=== PATIENT | male | born 1970 | race Asian ===

== ENCOUNTER 2020-03-11 14:46 | Inpatient (IN) | payer OTHER ==
[~2020-03-11] VITALS: Ht 175.3 cm; Wt 135.2 kg
[2020-03-11] MEDS ORDERED: CEFTRIAXONE 1 G PREMIX 50 ML IV ONE (15:30)
[2020-03-11] MEDS ORDERED: AZITHROMYCIN 500 MG in DEXT 5% WATER 250 ML IV ONE (15:30)
[2020-03-11 16:08] LABS: BASOPHILS % 0.5 % (0.0-2.0); EOSINOPHILS % 1.7 % (0.0-5.0); HEMATOCRIT. 54.8 % (42.0-52.0); HEMOGLOBIN. 16.2 g/dL (14.0-18.0); LYMPHOCYTES % 9.4 % (20.0-50.0); MEAN CORPUSCULAR HEMOGLOBIN 25.7 pg (28.0-32.0); MEAN CORPUSCULAR VOLUME 86.8 fL (80.0-94.0); MEAN PLATELET VOLUME 9.1 fl (7.4-10.4); MONOCYTES % 7.1 % (2.0-8.0); NEUTROPHILS % 81.3 % (40.0-76.0); PLATELET 172 x1000/uL (130-400); RED BLOOD CELL COUNT 6.31 mill/uL (4.7-6.1); RED CELL DISTRIBUTION WIDTH 17.2 % (11.6-14.6)
[2020-03-11 16:14] LABS: CHLORIDE 101 mEq/L (98-107)
[2020-03-11 16:16] LABS: D-DIMER 1.06 mg/L FEU (<0.50); INR 1.2; PROTHROMBIN TIME 12.1 sec (9.6-11.0)
[2020-03-11] MEDS ORDERED: NITROGLYCERIN OINT 1GM/INCH UDPKT TD ONE (16:45)
[2020-03-11] MEDS ORDERED: FUROSEMIDE 40MG/4ML VIAL IV ONE (16:45)
[2020-03-11 17:54] LABS: BG BASE EXCESS 4.1 mmol/L (-2.0-2.0); BG DEOXYHEMOGLOBIN 1.4 % (0.0-5.0); BG FRACTION INSPIRED OXYGEN 100; BG HCO3 ACT 37.6 mmol/L (22.0-26.0); BG METHEMOGLOBIN 0.4 % (0.0-1.5); BG OXYGEN SATURATION 98.6 % (92.0-98.5); BG OXYHEMOGLOBIN 97.2 % (94.0-97.0); BG PCO2 104.3 mmHg (35.0-45.0); BG PH 7.175 (7.350-7.450); BG SAMPLE SITE RIGHT RADIAL; BG TOTAL HEMOGLOBIN 17.7 g/dL (12.0-18.0); BG VENT MODE MASK - NRB
[2020-03-11 20:11] LABS: BG CARBOXYHEMOGLOBIN 1.4 % (0.5-1.5); BG DEOXYHEMOGLOBIN 0.8 % (0.0-5.0); BG FRACTION INSPIRED OXYGEN 70; BG HCO3 ACT 42.7 mmol/L (22.0-26.0); BG METHEMOGLOBIN 0.6 % (0.0-1.5); BG OXYGEN SATURATION 99.2 % (92.0-98.5); BG OXYHEMOGLOBIN 97.2 % (94.0-97.0); BG PCO2 129.3 mmHg (35.0-45.0); BG PH 7.137 (7.350-7.450); BG PO2 192.7 mmHg (75.0-100.0); BG TOTAL HEMOGLOBIN 17.6 g/dL (12.0-18.0)
[2020-03-11 21:29] LABS: BG BASE EXCESS 5.2 mmol/L (-2.0-2.0); BG CARBOXYHEMOGLOBIN 1.4 % (0.5-1.5); BG DEOXYHEMOGLOBIN 0.6 % (0.0-5.0); BG FRACTION INSPIRED OXYGEN 100; BG HCO3 ACT 39.7 mmol/L (22.0-26.0); BG METHEMOGLOBIN 0.6 % (0.0-1.5); BG OXYGEN SATURATION 99.4 % (92.0-98.5); BG OXYHEMOGLOBIN 97.4 % (94.0-97.0); BG PCO2 115.5 mmHg (35.0-45.0); BG PH 7.154 (7.350-7.450); BG PO2 222.4 mmHg (75.0-100.0); BG TOTAL HEMOGLOBIN 17.3 g/dL (12.0-18.0)
[2020-03-11] MEDS ORDERED: VECURONIUM BROMIDE 10 MG/VIAL IV ONE (21:45)
[2020-03-11] MEDS ORDERED: ETOMIDATE 2MG/ML 10ML VIAL IV ONE (21:45)
[2020-03-11] MEDS ORDERED: IOHEXOL-350 100 ML BOTTLE ONE (22:44)
[2020-03-11] MEDS ORDERED: PROPOFOL 10MG/ML 100ML 100 ML IV STA (22:47)
[2020-03-12] MEDS ORDERED: SODIUM CHLORIDE 0.9% 10ML VIAL ONE
[2020-03-12] MEDS ORDERED: ASPIRIN 300MG SUPP PR ONE (00:15)
[2020-03-12] MEDS ORDERED: MIDAZOLAM HCL 100 MG in DEXT 5% WATER 80 ML IV ONE (00:30)
[2020-03-12 00:32] LABS: BG BASE EXCESS 6.4 mmol/L (-2.0-2.0); BG CARBOXYHEMOGLOBIN 1.4 % (0.5-1.5); BG DEOXYHEMOGLOBIN 6.3 % (0.0-5.0); BG FRACTION INSPIRED OXYGEN 100; BG HCO3 ACT 39.1 mmol/L (22.0-26.0); BG METHEMOGLOBIN 0.4 % (0.0-1.5); BG OXYGEN SATURATION 93.6 % (92.0-98.5); BG OXYHEMOGLOBIN 91.9 % (94.0-97.0); BG PCO2 99.4 mmHg (35.0-45.0); BG PH 7.213 (7.350-7.450); BG PO2 73.9 mmHg (75.0-100.0); BG SAMPLE SITE RIGHT BRACHIAL
[2020-03-12] MEDS ORDERED: MIDAZOLAM HCL 100 MG in DEXT 5% WATER 80 ML IV SCH (01:00)
[2020-03-12] MEDS ORDERED: DEXAMETHASONE 4MG/ML 1ML VIAL IV SCH (09:00)
[2020-03-12 09:47] LABS: BG BASE EXCESS 12.1 mmol/L (-2.0-2.0); BG CARBOXYHEMOGLOBIN 1.2 % (0.5-1.5); BG DEOXYHEMOGLOBIN 2.7 % (0.0-5.0); BG HCO3 ACT 41.1 mmol/L (22.0-26.0); BG METHEMOGLOBIN 0.1 % (0.0-1.5); BG OXYGEN SATURATION 97.3 % (92.0-98.5); BG PCO2 70.7 mmHg (35.0-45.0); BG PH 7.382 (7.350-7.450); BG PO2 90.1 mmHg (75.0-100.0); BG SAMPLE SITE RIGHT RADIAL; BG TOTAL HEMOGLOBIN 16.4 g/dL (12.0-18.0); BG TOTAL RESPIRATORY RATE 18 b/min; BG VENT MODE VENT - AC
[2020-03-12] MEDS: PIPERACILLIN/TAZ 3.375G PREMIX 50 ML IV SCH ×3 (09:47→18:13)
[2020-03-12] MEDS: ENOXAPARIN 40MG/0.4ML SYR SUBCUT SCH (09:49)
[2020-03-12] MEDS: PANTOPRAZOLE SODIUM 40 MG/VIAL IV SCH (10:00)
[2020-03-12] MEDS ORDERED: ONDANSETRON HCL 4MG/2ML INJ IV PRN (10:00)
[2020-03-12] MEDS ORDERED: FUROSEMIDE 40MG/4ML VIAL IVP NR (10:15)
[2020-03-12] MEDS: IPRATROPIUM/ALBUTEROL 0.5-3(2.5)MG/3ML NEB HHN SCH ×4 (10:30→21:41)
[2020-03-12 11:17] LABS: CLARITY URINE CLEAR (CLEAR); COLOR URINE YELLOW (YELLOW); KETONES URINE NEGATIVE (NEGATIVE); LEUKOCYTE ESTERASE URINE NEGATIVE (NEGATIVE); NITRITE URINE NEGATIVE (NEGATIVE); OCCULT BLOOD URINE 2+ (NEGATIVE); PROTEIN URINE NEGATIVE (NEGATIVE); SPECIFIC GRAVITY URINE 1.018 (1.005-1.030); UROBILINOGEN URINE 0.2 E.U./dL (0.2-1.0)
[2020-03-12 12:57] LABS: HEMATOCRIT. 50.8 % (42.0-52.0); HEMOGLOBIN. 15.8 g/dL (14.0-18.0); MEAN CORPUSCULAR HEMOGLOBIN 26.6 pg (28.0-32.0); MEAN CORPUSCULAR VOLUME 85.5 fL (80.0-94.0); MEAN PLATELET VOLUME 9.1 fl (7.4-10.4); PLATELET 152 x1000/uL (130-400); RED BLOOD CELL COUNT 5.94 mill/uL (4.7-6.1); RED CELL DISTRIBUTION WIDTH 16.5 % (11.6-14.6)
[2020-03-12 13:09] LABS: CHLORIDE 103 mEq/L (98-107)
[2020-03-12 13:34] LABS: PLATELET ESTIMATE NORMAL
[2020-03-12 16:39] LABS: *AMPHETAMINES SCREEN URINE NEGATIVE (NEGATIVE); *BARBITURATES SCREEN URINE NEGATIVE (NEGATIVE); *BENZODIAZEPINES SCREEN URINE PRESUMTIVE POSITIVE (NEGATIVE); *COCAINE SCREEN URINE NEGATIVE (NEGATIVE); METHADONE URINE SCREEN NEGATIVE (NEGATIVE); OPIATES URINE SCREEN NEGATIVE (NEGATIVE)
[2020-03-12 16:40] LABS: CANNABINOID URINE SCREEN NEGATIVE (NEGATIVE); PHENCYCLIDINE URINE SCREEN NEGATIVE (NEGATIVE)
[2020-03-13] MEDS: IPRATROPIUM/ALBUTEROL 0.5-3(2.5)MG/3ML NEB HHN SCH ×6 (00:27→20:38)
[2020-03-13] MEDS: PIPERACILLIN/TAZ 3.375G PREMIX 50 ML IV SCH ×4 (05:30→18:28)
[2020-03-13] MEDS: ENOXAPARIN 40MG/0.4ML SYR SUBCUT SCH ×3 (05:30→22:28)
[2020-03-13] MEDS: METHYLPREDNISOLONE SOD SUCC 40 MG/ML VIAL IV SCH ×3 (05:30→14:16)
[2020-03-13 10:05] LABS: BG BASE EXCESS 8.1 mmol/L (-2.0-2.0); BG CARBOXYHEMOGLOBIN 0.9 % (0.5-1.5); BG DEOXYHEMOGLOBIN 10.4 % (0.0-5.0); BG FRACTION INSPIRED OXYGEN 60; BG HCO3 ACT 31.7 mmol/L (22.0-26.0); BG METHEMOGLOBIN 0.5 % (0.0-1.5); BG OXYGEN SATURATION 89.5 % (92.0-98.5); BG OXYHEMOGLOBIN 88.2 % (94.0-97.0); BG PCO2 39.8 mmHg (35.0-45.0); BG PH 7.519 (7.350-7.450); BG PO2 49.9 mmHg (75.0-100.0); BG SAMPLE SITE RIGHT RADIAL; BG TOTAL HEMOGLOBIN 17.8 g/dL (12.0-18.0); BG VENT MODE VENT - AC
[2020-03-13] MEDS: PANTOPRAZOLE SODIUM 40 MG/VIAL IV SCH (10:26)
[2020-03-13] MEDS: FUROSEMIDE 40MG/4ML VIAL IVP SCH (10:27)
[2020-03-13 13:10] LABS: HEMATOCRIT. 52.7 % (42.0-52.0); HEMOGLOBIN. 16.5 g/dL (14.0-18.0); MEAN CORPUSCULAR HEMOGLOBIN 26.2 pg (28.0-32.0); MEAN CORPUSCULAR VOLUME 83.7 fL (80.0-94.0); MEAN PLATELET VOLUME 9.4 fl (7.4-10.4); PLATELET 177 x1000/uL (130-400); RED CELL DISTRIBUTION WIDTH 16.3 % (11.6-14.6)
[2020-03-13 13:12] LABS: CHLORIDE 100 mEq/L (98-107)
[2020-03-13 14:40] LABS: PLATELET ESTIMATE NORMAL
[2020-03-13 17:25] LABS: BG BASE EXCESS 7.1 mmol/L (-2.0-2.0); BG CARBOXYHEMOGLOBIN 0.5 % (0.5-1.5); BG DEOXYHEMOGLOBIN 5.1 % (0.0-5.0); BG FRACTION INSPIRED OXYGEN 90; BG HCO3 ACT 34.7 mmol/L (22.0-26.0); BG METHEMOGLOBIN 0.5 % (0.0-1.5); BG OXYGEN SATURATION 94.8 % (92.0-98.5); BG OXYHEMOGLOBIN 93.9 % (94.0-97.0); BG PCO2 58.6 mmHg (35.0-45.0); BG PO2 78.5 mmHg (75.0-100.0); BG SAMPLE SITE RIGHT RADIAL; BG TOTAL HEMOGLOBIN 18.3 g/dL (12.0-18.0); BG VENT MODE VENT - AC
[2020-03-14] MEDS: IPRATROPIUM/ALBUTEROL 0.5-3(2.5)MG/3ML NEB HHN SCH ×6 (00:21→21:08)
[2020-03-14] MEDS: ACETYLCYSTEINE 100MG/ML 10% VIAL 4ML INH SCH ×6 (00:38→16:00)
[2020-03-14] MEDS: METHYLPREDNISOLONE SOD SUCC 40 MG/ML VIAL IV SCH ×4 (00:39→23:30)
[2020-03-14] MEDS: PIPERACILLIN/TAZ 3.375G PREMIX 50 ML IV SCH ×4 (00:39→21:49)
[2020-03-14 06:38] LABS: CHLORIDE 102 mEq/L (98-107)
[2020-03-14 06:43] LABS: HEMATOCRIT. 54.5 % (42.0-52.0); MEAN CORPUSCULAR HEMOGLOBIN 26.2 pg (28.0-32.0); MEAN CORPUSCULAR VOLUME 84.2 fL (80.0-94.0); MEAN PLATELET VOLUME 9.5 fl (7.4-10.4); PLATELET 184 x1000/uL (130-400); RED BLOOD CELL COUNT 6.47 mill/uL (4.7-6.1); RED CELL DISTRIBUTION WIDTH 17.2 % (11.6-14.6)
[2020-03-14] MEDS: FUROSEMIDE 40MG/4ML VIAL IVP SCH (09:43)
[2020-03-14] MEDS: PANTOPRAZOLE SODIUM 40 MG/VIAL IV SCH (09:43)
[2020-03-14] MEDS: ENOXAPARIN 40MG/0.4ML SYR SUBCUT SCH ×2 (09:45→21:50)
[2020-03-14 10:17] LABS: BG CARBOXYHEMOGLOBIN 1.1 % (0.5-1.5); BG DEOXYHEMOGLOBIN 4.3 % (0.0-5.0); BG FRACTION INSPIRED OXYGEN 100; BG HCO3 ACT 33.5 mmol/L (22.0-26.0); BG METHEMOGLOBIN 0.5 % (0.0-1.5); BG OXYGEN SATURATION 95.6 % (92.0-98.5); BG OXYHEMOGLOBIN 94.1 % (94.0-97.0); BG PCO2 52.8 mmHg (35.0-45.0); BG PO2 80.1 mmHg (75.0-100.0); BG SAMPLE SITE RIGHT RADIAL; BG VENT MODE VENT - AC
[2020-03-14 10:48] LABS: PLATELET ESTIMATE NORMAL
[2020-03-14] MEDS ORDERED: LORAZEPAM 2MG/ML CPJ IV PRN (17:00)
[2020-03-14] MEDS: LEVETIRACETAM 500MG TABLET PO SCH (22:28)
[2020-03-15] VITALS (42 sets, daily range): BP systolic 76–125; BP diastolic 35–96
[2020-03-15] MEDS: IPRATROPIUM/ALBUTEROL 0.5-3(2.5)MG/3ML NEB HHN SCH ×6 (00:35→21:34)
[2020-03-15] MEDS: ACETYLCYSTEINE 100MG/ML 10% VIAL 4ML INH SCH ×3 (00:39→21:34)
[2020-03-15] MEDS: PIPERACILLIN/TAZ 3.375G PREMIX 50 ML IV SCH ×3 (05:52→11:46)
[2020-03-15] MEDS: METHYLPREDNISOLONE SOD SUCC 40 MG/ML VIAL IV SCH ×3 (06:00→21:11)
[2020-03-15 06:18] LABS: HEMATOCRIT. 55.1 % (42.0-52.0); HEMOGLOBIN. 16.9 g/dL (14.0-18.0); MEAN CORPUSCULAR HEMOGLOBIN 25.8 pg (28.0-32.0); MEAN CORPUSCULAR VOLUME 84.4 fL (80.0-94.0); MEAN PLATELET VOLUME 9.3 fl (7.4-10.4); PLATELET 181 x1000/uL (130-400); RED BLOOD CELL COUNT 6.53 mill/uL (4.7-6.1)
[2020-03-15 06:24] LABS: CHLORIDE 103 mEq/L (98-107)
[2020-03-15 07:54] LABS: PLATELET ESTIMATE NORMAL
[2020-03-15 08:06] LABS: BG BASE EXCESS 4.4 mmol/L (-2.0-2.0); BG CARBOXYHEMOGLOBIN 0.6 % (0.5-1.5); BG DEOXYHEMOGLOBIN 6.9 % (0.0-5.0); BG FRACTION INSPIRED OXYGEN 100; BG HCO3 ACT 30.8 mmol/L (22.0-26.0); BG METHEMOGLOBIN 0.3 % (0.0-1.5); BG OXYHEMOGLOBIN 92.2 % (94.0-97.0); BG PCO2 51.6 mmHg (35.0-45.0); BG PH 7.394 (7.350-7.450); BG PO2 69.7 mmHg (75.0-100.0); BG SAMPLE SITE RIGHT RADIAL; BG TOTAL RESPIRATORY RATE 23 b/min; BG VENT MODE VENT - AC
[2020-03-15] MEDS: FENTANYL CITRATE/PF 2,500 MCG in SODIUM CHLORIDE 0.9% 200 ML IV PRN ×2 (09:19→17:11)
[2020-03-15] MEDS: ENOXAPARIN 40MG/0.4ML SYR SUBCUT SCH ×2 (09:49→21:11)
[2020-03-15] MEDS: FUROSEMIDE 40MG/4ML VIAL IVP SCH (09:50)
[2020-03-15] MEDS: LEVETIRACETAM 500MG TABLET PO SCH ×2 (09:50→21:11)
[2020-03-15] MEDS: PANTOPRAZOLE SODIUM 40 MG/VIAL IV SCH (10:57)
[2020-03-15 13:10] LABS: BG BASE EXCESS 6.5 mmol/L (-2.0-2.0); BG CARBOXYHEMOGLOBIN 0.3 % (0.5-1.5); BG FRACTION INSPIRED OXYGEN 100; BG HCO3 ACT 32.8 mmol/L (22.0-26.0); BG METHEMOGLOBIN 0.2 % (0.0-1.5); BG OXYHEMOGLOBIN 93.5 % (94.0-97.0); BG PCO2 51.4 mmHg (35.0-45.0); BG PH 7.423 (7.350-7.450); BG PO2 69.9 mmHg (75.0-100.0); BG SAMPLE SITE RIGHT BRACHIAL; BG TOTAL HEMOGLOBIN 18.3 g/dL (12.0-18.0); BG TOTAL RESPIRATORY RATE 22 b/min; BG VENT MODE VENT - AC
[2020-03-15] MEDS: MIDAZOLAM HCL 100 MG in DEXT 5% WATER 80 ML IV PRN ×2 (13:25→21:47)
[2020-03-15] MEDS: PIPERACILLIN/TAZOBACTAM 3.375 G in DEXT 5% WATER 100 ML IV SCH (18:35)
[2020-03-15] MEDS: RISPERIDONE 1MG TABLET PO SCH (21:11)
[2020-03-15] MEDS: ACETAMINOPHEN 325MG TABLET PO PRN (21:18)
[2020-03-16] VITALS (63 sets, daily range): BP systolic 90–120; BP diastolic 50–77
[2020-03-16] MEDS: PIPERACILLIN/TAZOBACTAM 3.375 G in DEXT 5% WATER 100 ML IV SCH ×5 (00:15→23:30)
[2020-03-16] MEDS: FENTANYL CITRATE/PF 2,500 MCG in SODIUM CHLORIDE 0.9% 200 ML IV PRN ×3 (00:21→18:14)
[2020-03-16] MEDS: IPRATROPIUM/ALBUTEROL 0.5-3(2.5)MG/3ML NEB HHN SCH ×6 (01:41→20:00)
[2020-03-16] MEDS: ACETYLCYSTEINE 100MG/ML 10% VIAL 4ML INH SCH ×5 (01:41→20:01)
[2020-03-16 06:15] LABS: HEMATOCRIT. 52.3 % (42.0-52.0); HEMOGLOBIN. 16.2 g/dL (14.0-18.0); MEAN CORPUSCULAR HEMOGLOBIN 25.9 pg (28.0-32.0); MEAN CORPUSCULAR VOLUME 83.3 fL (80.0-94.0); MEAN PLATELET VOLUME 9.5 fl (7.4-10.4); PLATELET 187 x1000/uL (130-400); RED BLOOD CELL COUNT 6.27 mill/uL (4.7-6.1); RED CELL DISTRIBUTION WIDTH 16.6 % (11.6-14.6)
[2020-03-16] MEDS: METHYLPREDNISOLONE SOD SUCC 40 MG/ML VIAL IV SCH ×3 (06:27→21:26)
[2020-03-16 06:31] LABS: CHLORIDE 102 mEq/L (98-107)
[2020-03-16] MEDS: ENOXAPARIN 40MG/0.4ML SYR SUBCUT SCH ×2 (08:01→21:26)
[2020-03-16] MEDS: MIDAZOLAM HCL 100 MG in DEXT 5% WATER 80 ML IV PRN ×2 (08:01→23:33)
[2020-03-16] MEDS: LEVETIRACETAM 500MG TABLET PO SCH ×2 (08:02→21:26)
[2020-03-16] MEDS: RISPERIDONE 1MG TABLET PO SCH ×2 (08:02→21:26)
[2020-03-16] MEDS: PANTOPRAZOLE SODIUM 40 MG/VIAL IV SCH (08:02)
[2020-03-16] MEDS: FUROSEMIDE 40MG/4ML VIAL IVP SCH (08:02)
[2020-03-16 08:18] LABS: BG BASE EXCESS 5.5 mmol/L (-2.0-2.0); BG CARBOXYHEMOGLOBIN 0.3 % (0.5-1.5); BG DEOXYHEMOGLOBIN 2.6 % (0.0-5.0); BG FRACTION INSPIRED OXYGEN 100; BG HCO3 ACT 29.5 mmol/L (22.0-26.0); BG METHEMOGLOBIN 0.1 % (0.0-1.5); BG OXYGEN SATURATION 97.4 % (92.0-98.5); BG PCO2 40.5 mmHg (35.0-45.0); BG PO2 93.7 mmHg (75.0-100.0); BG SAMPLE SITE RIGHT RADIAL; BG TOTAL RESPIRATORY RATE 22 b/min; BG VENT MODE VENT - AC
[2020-03-16] MEDS: ACETAMINOPHEN 325MG TABLET PO PRN (08:29)
[2020-03-16 17:16] LABS: BG BASE EXCESS 4.5 mmol/L (-2.0-2.0); BG CARBOXYHEMOGLOBIN 0.6 % (0.5-1.5); BG DEOXYHEMOGLOBIN 6.4 % (0.0-5.0); BG HCO3 ACT 27.6 mmol/L (22.0-26.0); BG METHEMOGLOBIN 0.4 % (0.0-1.5); BG OXYGEN SATURATION 93.5 % (92.0-98.5); BG OXYHEMOGLOBIN 92.6 % (94.0-97.0); BG PCO2 36.5 mmHg (35.0-45.0); BG PH 7.497 (7.350-7.450); BG PO2 64.8 mmHg (75.0-100.0); BG SAMPLE SITE RIGHT RADIAL; BG TOTAL HEMOGLOBIN 18.1 g/dL (12.0-18.0); BG VENT MODE VENT - AC
[2020-03-16 19:02] LABS: PLATELET ESTIMATE NORMAL
[2020-03-17] VITALS (53 sets, daily range): BP systolic 96–131; BP diastolic 48–73
[2020-03-17] MEDS: IPRATROPIUM/ALBUTEROL 0.5-3(2.5)MG/3ML NEB HHN SCH ×6 (00:05→21:20)
[2020-03-17] MEDS: ACETYLCYSTEINE 100MG/ML 10% VIAL 4ML INH SCH ×6 (00:05→21:20)
[2020-03-17] MEDS: ACETAMINOPHEN 325MG TABLET PO PRN ×3 (00:10→17:05)
[2020-03-17] MEDS: FENTANYL CITRATE/PF 2,500 MCG in SODIUM CHLORIDE 0.9% 200 ML IV PRN ×2 (04:52→14:22)
[2020-03-17 06:09] LABS: HEMATOCRIT. 53.3 % (42.0-52.0); HEMOGLOBIN. 16.5 g/dL (14.0-18.0); MEAN CORPUSCULAR HEMOGLOBIN 26.2 pg (28.0-32.0); MEAN CORPUSCULAR VOLUME 84.3 fL (80.0-94.0); MEAN PLATELET VOLUME 9.5 fl (7.4-10.4); PLATELET 162 x1000/uL (130-400); RED BLOOD CELL COUNT 6.32 mill/uL (4.7-6.1); RED CELL DISTRIBUTION WIDTH 16.9 % (11.6-14.6)
[2020-03-17 06:11] LABS: CHLORIDE 103 mEq/L (98-107)
[2020-03-17] MEDS: METHYLPREDNISOLONE SOD SUCC 40 MG/ML VIAL IV SCH ×4 (06:13→22:31)
[2020-03-17] MEDS: PIPERACILLIN/TAZOBACTAM 3.375 G in DEXT 5% WATER 100 ML IV SCH ×2 (06:13→11:00)
[2020-03-17 07:08] LABS: BG BASE EXCESS 2.2 mmol/L (-2.0-2.0); BG CARBOXYHEMOGLOBIN 0.9 % (0.5-1.5); BG DEOXYHEMOGLOBIN 7.2 % (0.0-5.0); BG FRACTION INSPIRED OXYGEN 90; BG HCO3 ACT 28.4 mmol/L (22.0-26.0); BG METHEMOGLOBIN 0.4 % (0.0-1.5); BG OXYGEN SATURATION 92.7 % (92.0-98.5); BG OXYHEMOGLOBIN 91.5 % (94.0-97.0); BG PCO2 49.3 mmHg (35.0-45.0); BG PH 7.378 (7.350-7.450); BG PO2 68.3 mmHg (75.0-100.0); BG SAMPLE SITE RIGHT RADIAL; BG TOTAL HEMOGLOBIN 17.6 g/dL (12.0-18.0); BG TOTAL RESPIRATORY RATE 22 b/min; BG VENT MODE VENT - AC
[2020-03-17] MEDS: RISPERIDONE 1MG TABLET PO SCH ×2 (09:24→22:30)
[2020-03-17] MEDS: LEVETIRACETAM 500MG TABLET PO SCH ×2 (09:24→22:30)
[2020-03-17] MEDS: ENOXAPARIN 40MG/0.4ML SYR SUBCUT SCH ×2 (09:25→22:29)
[2020-03-17] MEDS: PANTOPRAZOLE SODIUM 40 MG/VIAL IV SCH (09:25)
[2020-03-17] MEDS: FUROSEMIDE 40MG/4ML VIAL IVP SCH (09:25)
[2020-03-17] MEDS: MIDAZOLAM HCL 100 MG in DEXT 5% WATER 80 ML IV PRN (14:19)
[2020-03-17 17:00] LABS: CLARITY URINE CLEAR (CLEAR); COLOR URINE YELLOW (YELLOW); KETONES URINE NEGATIVE (NEGATIVE); LEUKOCYTE ESTERASE URINE TRACE (NEGATIVE); NITRITE URINE NEGATIVE (NEGATIVE); OCCULT BLOOD URINE NEGATIVE (NEGATIVE); PROTEIN URINE NEGATIVE (NEGATIVE); SPECIFIC GRAVITY URINE 1.022 (1.005-1.030); UROBILINOGEN URINE 0.2 E.U./dL (0.2-1.0)
[2020-03-17 17:25] LABS: PLATELET ESTIMATE NORMAL
[2020-03-17] MEDS: MEROPENEM 1,000 MG in SODIUM CHLORIDE 0.9% 100 ML IV SCH (18:02)
[2020-03-17] MEDS: VANCOMYCIN 1250MG in DEXTROSE 5% WATER 250ML IV SCH (20:32)
[2020-03-18] VITALS (75 sets, daily range): BP systolic 73–119; BP diastolic 32–78
[2020-03-18] MEDS: ACETYLCYSTEINE 100MG/ML 10% VIAL 4ML INH SCH ×5 (00:28→21:15)
[2020-03-18] MEDS: IPRATROPIUM/ALBUTEROL 0.5-3(2.5)MG/3ML NEB HHN SCH ×6 (00:28→21:16)
[2020-03-18] MEDS: FENTANYL CITRATE/PF 2,500 MCG in SODIUM CHLORIDE 0.9% 200 ML IV PRN ×3 (00:44→19:39)
[2020-03-18] MEDS: MEROPENEM 1,000 MG in SODIUM CHLORIDE 0.9% 100 ML IV SCH ×3 (03:03→18:46)
[2020-03-18] MEDS: ACETAMINOPHEN 325MG TABLET PO PRN ×2 (03:19→18:24)
[2020-03-18] MEDS: VANCOMYCIN 1250MG in DEXTROSE 5% WATER 250ML IV SCH ×3 (03:21→21:12)
[2020-03-18] MEDS: MIDAZOLAM HCL 100 MG in DEXT 5% WATER 80 ML IV PRN ×2 (05:42→14:45)
[2020-03-18 06:46] LABS: HEMATOCRIT. 53.4 % (42.0-52.0); HEMOGLOBIN. 16.3 g/dL (14.0-18.0); MEAN CORPUSCULAR VOLUME 85.1 fL (80.0-94.0); MEAN PLATELET VOLUME 10.2 fl (7.4-10.4); PLATELET 146 x1000/uL (130-400); RED BLOOD CELL COUNT 6.27 mill/uL (4.7-6.1)
[2020-03-18 06:47] LABS: CHLORIDE 105 mEq/L (98-107)
[2020-03-18] MEDS: METHYLPREDNISOLONE SOD SUCC 40 MG/ML VIAL IV SCH ×3 (07:10→21:12)
[2020-03-18] MEDS: PANTOPRAZOLE SODIUM 40 MG/VIAL IV SCH (10:07)
[2020-03-18] MEDS: RISPERIDONE 1MG TABLET PO SCH ×2 (10:07→21:12)
[2020-03-18] MEDS: FUROSEMIDE 40MG/4ML VIAL IVP SCH (10:07)
[2020-03-18] MEDS: ENOXAPARIN 40MG/0.4ML SYR SUBCUT SCH ×2 (10:08→21:12)
[2020-03-18] MEDS: LEVETIRACETAM 500MG TABLET PO SCH ×2 (10:12→21:12)
[2020-03-18 10:40] LABS: BG BASE EXCESS 2.4 mmol/L (-2.0-2.0); BG CARBOXYHEMOGLOBIN 0.2 % (0.5-1.5); BG DEOXYHEMOGLOBIN 6.5 % (0.0-5.0); BG FRACTION INSPIRED OXYGEN 100; BG HCO3 ACT 27.1 mmol/L (22.0-26.0); BG METHEMOGLOBIN 0.6 % (0.0-1.5); BG OXYGEN SATURATION 93.4 % (92.0-98.5); BG OXYHEMOGLOBIN 92.7 % (94.0-97.0); BG PH 7.427 (7.350-7.450); BG PO2 65.5 mmHg (75.0-100.0); BG SAMPLE SITE RIGHT RADIAL; BG TOTAL HEMOGLOBIN 18.3 g/dL (12.0-18.0); BG VENT MODE VENT - AC
[2020-03-18 20:29] LABS: PLATELET ESTIMATE NORMAL
[2020-03-19] VITALS (53 sets, daily range): BP systolic 91–110; BP diastolic 55–80
[2020-03-19] MEDS: IPRATROPIUM/ALBUTEROL 0.5-3(2.5)MG/3ML NEB HHN SCH ×7 (00:22→23:50)
[2020-03-19] MEDS: ACETAMINOPHEN 325MG TABLET PO PRN ×2 (03:23→23:34)
[2020-03-19] MEDS: MEROPENEM 1,000 MG in SODIUM CHLORIDE 0.9% 100 ML IV SCH ×3 (04:30→17:56)
[2020-03-19] MEDS: FENTANYL CITRATE/PF 2,500 MCG in SODIUM CHLORIDE 0.9% 200 ML IV PRN ×3 (05:06→21:59)
[2020-03-19] MEDS: VANCOMYCIN 1250MG in DEXTROSE 5% WATER 250ML IV SCH (05:17)
[2020-03-19] MEDS: MIDAZOLAM HCL 100 MG in DEXT 5% WATER 80 ML IV PRN ×2 (05:22→18:35)
[2020-03-19 05:40] LABS: CHLORIDE 106 mEq/L (98-107)
[2020-03-19] MEDS: METHYLPREDNISOLONE SOD SUCC 40 MG/ML VIAL IV SCH ×3 (05:46→21:17)
[2020-03-19 05:48] LABS: CREATINE KINASE 99 IU/L (39-308); VANCOMYCIN TROUGH 12.4 ug/mL (5.0-10.0)
[2020-03-19 06:15] LABS: HEMATOCRIT. 57.1 % (42.0-52.0); HEMOGLOBIN. 17.6 g/dL (14.0-18.0); MEAN CORPUSCULAR HEMOGLOBIN 26.6 pg (28.0-32.0); MEAN PLATELET VOLUME 10.4 fl (7.4-10.4); PLATELET 124 x1000/uL (130-400); RED BLOOD CELL COUNT 6.63 mill/uL (4.7-6.1); RED CELL DISTRIBUTION WIDTH 16.3 % (11.6-14.6)
[2020-03-19] MEDS ORDERED: LIDOCAINE HCL 1% 20ML VIAL (Pyxis) INJ ONE (08:48)
[2020-03-19] MEDS: LEVETIRACETAM 500MG TABLET PO SCH ×2 (08:50→21:17)
[2020-03-19] MEDS: RISPERIDONE 1MG TABLET PO SCH ×2 (08:50→21:17)
[2020-03-19] MEDS: FUROSEMIDE 40MG/4ML VIAL IVP SCH (08:50)
[2020-03-19] MEDS: ENOXAPARIN 40MG/0.4ML SYR SUBCUT SCH ×2 (08:50→21:17)
[2020-03-19] MEDS: PANTOPRAZOLE SODIUM 40 MG/VIAL IV SCH (08:54)
[2020-03-19 12:24] LABS: BG BASE EXCESS 4.5 mmol/L (-2.0-2.0); BG CARBOXYHEMOGLOBIN 0.3 % (0.5-1.5); BG DEOXYHEMOGLOBIN 8.6 % (0.0-5.0); BG FRACTION INSPIRED OXYGEN 100; BG HCO3 ACT 28.5 mmol/L (22.0-26.0); BG METHEMOGLOBIN 0.3 % (0.0-1.5); BG OXYGEN SATURATION 91.3 % (92.0-98.5); BG OXYHEMOGLOBIN 90.8 % (94.0-97.0); BG PCO2 40.2 mmHg (35.0-45.0); BG PH 7.469 (7.350-7.450); BG PO2 57.4 mmHg (75.0-100.0); BG SAMPLE SITE RIGHT RADIAL; BG VENT MODE VENT - AC
[2020-03-19] MEDS: VANCOMYCIN 1500MG in DEXTROSE 5% WATER 250ML IV SCH (14:06)
[2020-03-20] VITALS (71 sets, daily range): BP systolic 86–160; BP diastolic 54–112
[2020-03-20] MEDS: VANCOMYCIN 1500MG in DEXTROSE 5% WATER 250ML IV SCH ×4 (00:16→23:18)
[2020-03-20] MEDS: NOREPINEPHRINE 32 MG in DEXT 5% WATER 218 ML IV PRN (01:35)
[2020-03-20] MEDS: MEROPENEM 1,000 MG in SODIUM CHLORIDE 0.9% 100 ML IV SCH ×3 (03:02→17:24)
[2020-03-20] MEDS: IPRATROPIUM/ALBUTEROL 0.5-3(2.5)MG/3ML NEB HHN SCH ×4 (05:22→21:01)
[2020-03-20] MEDS: METHYLPREDNISOLONE SOD SUCC 40 MG/ML VIAL IV SCH ×3 (05:28→21:27)
[2020-03-20] MEDS: MIDAZOLAM HCL 100 MG in DEXT 5% WATER 80 ML IV PRN ×2 (05:35→18:22)
[2020-03-20] MEDS: FENTANYL CITRATE/PF 2,500 MCG in SODIUM CHLORIDE 0.9% 200 ML IV PRN ×2 (06:07→18:21)
[2020-03-20 07:33] LABS: CHLORIDE 107 mEq/L (98-107)
[2020-03-20 07:42] LABS: HEMATOCRIT. 56.3 % (42.0-52.0); HEMOGLOBIN. 17.6 g/dL (14.0-18.0); MEAN CORPUSCULAR HEMOGLOBIN 26.8 pg (28.0-32.0); MEAN CORPUSCULAR VOLUME 85.7 fL (80.0-94.0); RED BLOOD CELL COUNT 6.57 mill/uL (4.7-6.1); RED CELL DISTRIBUTION WIDTH 16.5 % (11.6-14.6)
[2020-03-20] MEDS: PANTOPRAZOLE SODIUM 40 MG/VIAL IV SCH (09:42)
[2020-03-20] MEDS: FUROSEMIDE 40MG/4ML VIAL IVP SCH (09:42)
[2020-03-20] MEDS: LEVETIRACETAM 500MG TABLET PO SCH ×2 (09:42→21:27)
[2020-03-20] MEDS: ENOXAPARIN 40MG/0.4ML SYR SUBCUT SCH ×2 (09:43→21:28)
[2020-03-20] MEDS: RISPERIDONE 1MG TABLET PO SCH ×2 (09:43→21:27)
[2020-03-20 13:09] LABS: PLATELET 116 x1000/uL (130-400)
[2020-03-20 13:12] LABS: PLATELET ESTIMATE SLIGHTLY DECREASED
[2020-03-20 14:08] LABS: BG BASE EXCESS 2.2 mmol/L (-2.0-2.0); BG CARBOXYHEMOGLOBIN 0.3 % (0.5-1.5); BG DEOXYHEMOGLOBIN 8.3 % (0.0-5.0); BG HCO3 ACT 29.6 mmol/L (22.0-26.0); BG METHEMOGLOBIN 0.4 % (0.0-1.5); BG OXYGEN SATURATION 91.6 % (92.0-98.5); BG PCO2 54.9 mmHg (35.0-45.0); BG PO2 67.7 mmHg (75.0-100.0); BG SAMPLE SITE RIGHT BRACHIAL; BG TOTAL HEMOGLOBIN 19.2 g/dL (12.0-18.0); BG VENT MODE VENT - AC
[2020-03-20] MEDS: ACETAMINOPHEN 325MG TABLET PO PRN ×2 (14:13→18:19)
[2020-03-20 15:31] LABS: PLATELET ESTIMATE SLIGHTLY DECREASED
[2020-03-21] VITALS (67 sets, daily range): BP systolic 76–121; BP diastolic 53–73
[2020-03-21] MEDS: IPRATROPIUM/ALBUTEROL 0.5-3(2.5)MG/3ML NEB HHN SCH ×5 (00:52→17:13)
[2020-03-21] MEDS: MEROPENEM 1,000 MG in SODIUM CHLORIDE 0.9% 100 ML IV SCH ×3 (01:43→17:56)
[2020-03-21] MEDS: ACETAMINOPHEN 325MG TABLET PO PRN ×3 (01:46→22:44)
[2020-03-21] MEDS: FENTANYL CITRATE/PF 2,500 MCG in SODIUM CHLORIDE 0.9% 200 ML IV PRN ×2 (02:12→10:28)
[2020-03-21 04:53] LABS: HEMATOCRIT. 56.5 % (42.0-52.0); HEMOGLOBIN. 17.3 g/dL (14.0-18.0); MEAN CORPUSCULAR HEMOGLOBIN 26.2 pg (28.0-32.0); MEAN CORPUSCULAR VOLUME 85.6 fL (80.0-94.0); PLATELET 122 x1000/uL (130-400); RED CELL DISTRIBUTION WIDTH 16.4 % (11.6-14.6)
[2020-03-21] MEDS: METHYLPREDNISOLONE SOD SUCC 40 MG/ML VIAL IV SCH ×3 (05:00→22:45)
[2020-03-21 05:01] LABS: CHLORIDE 105 mEq/L (98-107)
[2020-03-21] MEDS: MIDAZOLAM HCL 100 MG in DEXT 5% WATER 80 ML IV PRN (10:29)
[2020-03-21] MEDS: ENOXAPARIN 40MG/0.4ML SYR SUBCUT SCH ×2 (10:43→22:45)
[2020-03-21] MEDS: PANTOPRAZOLE SODIUM 40 MG/VIAL IV SCH (10:44)
[2020-03-21] MEDS: RISPERIDONE 1MG TABLET PO SCH ×2 (10:44→22:44)
[2020-03-21] MEDS: FUROSEMIDE 40MG/4ML VIAL IVP SCH (10:44)
[2020-03-21] MEDS: LEVETIRACETAM 500MG TABLET PO SCH ×2 (10:45→22:44)
[2020-03-21] MEDS ORDERED: SODIUM POLYSTYRENE SULFONATE 15 G/60 ML BOT PO SCH (12:00)
[2020-03-21 14:10] LABS: PLATELET ESTIMATE SLIGHTLY DECREASED
[2020-03-21 14:14] LABS: BG CARBOXYHEMOGLOBIN 0.3 % (0.5-1.5); BG DEOXYHEMOGLOBIN 0.6 % (0.0-5.0); BG FRACTION INSPIRED OXYGEN 100; BG HCO3 ACT 32.4 mmol/L (22.0-26.0); BG METHEMOGLOBIN 0.8 % (0.0-1.5); BG OXYGEN SATURATION 99.4 % (92.0-98.5); BG OXYHEMOGLOBIN 98.3 % (94.0-97.0); BG PH 7.343 (7.350-7.450); BG SAMPLE SITE RIGHT RADIAL; BG TOTAL RESPIRATORY RATE 22 b/min; BG VENT MODE VENT - AC
[2020-03-21] MEDS ORDERED: VANCOMYCIN 1500MG in DEXTROSE 5% WATER 250ML IV SCH (22:30)
[2020-03-22] VITALS (54 sets, daily range): BP systolic 60–115; BP diastolic 33–87
[2020-03-22] MEDS: IPRATROPIUM/ALBUTEROL 0.5-3(2.5)MG/3ML NEB HHN SCH ×3 (00:50→08:00)
[2020-03-22] MEDS ORDERED: MIDAZOLAM HCL 100 MG in DEXT 5% WATER 80 ML IV PRN (05:45)
[2020-03-22 06:26] LABS: HEMOGLOBIN. 18.6 g/dL (14.0-18.0); MEAN CORPUSCULAR HEMOGLOBIN 25.9 pg (28.0-32.0); MEAN CORPUSCULAR VOLUME 86.8 fL (80.0-94.0); MEAN PLATELET VOLUME 12.4 fl (7.4-10.4); PLATELET 163 x1000/uL (130-400); RED BLOOD CELL COUNT 7.17 mill/uL (4.7-6.1); RED CELL DISTRIBUTION WIDTH 16.7 % (11.6-14.6)
[2020-03-22] MEDS: MEROPENEM 1,000 MG in SODIUM CHLORIDE 0.9% 100 ML IV SCH ×2 (06:31→09:41)
[2020-03-22] MEDS: METHYLPREDNISOLONE SOD SUCC 40 MG/ML VIAL IV SCH ×2 (06:31→13:24)
[2020-03-22 06:45] LABS: HEMATOCRIT. 62.3 % (42.0-52.0)
[2020-03-22] MEDS: FENTANYL CITRATE/PF 2,500 MCG in SODIUM CHLORIDE 0.9% 200 ML IV PRN (07:37)
[2020-03-22] MEDS: LEVETIRACETAM 500MG TABLET PO SCH (09:41)
[2020-03-22] MEDS: FUROSEMIDE 40MG/4ML VIAL IVP SCH (09:41)
[2020-03-22] MEDS: RISPERIDONE 1MG TABLET PO SCH (09:41)
[2020-03-22] MEDS: PANTOPRAZOLE SODIUM 40 MG/VIAL IV SCH (09:41)
[2020-03-22] MEDS: ENOXAPARIN 40MG/0.4ML SYR SUBCUT SCH (09:41)
[2020-03-22] MEDS: ACETAMINOPHEN 325MG TABLET PO PRN (09:43)
[2020-03-22] MEDS ORDERED: SODIUM POLYSTYRENE SULFONATE 15 G/60 ML BOT PO NR (10:00)
[2020-03-22] MEDS ORDERED: PHENYLEPHRINE 50 MG in DEXT 5% WATER 245 ML IV PRN (11:00)
[2020-03-22] MEDS ORDERED: SODIUM CHLORIDE 0.9% 500 ML IV ONE ×2 (12:45→13:15)
[2020-03-22] MEDS: NOREPINEPHRINE 32 MG in DEXT 5% WATER 218 ML IV PRN (13:12)
[2020-03-22 14:23] LABS: BG BASE EXCESS -4.4 mmol/L (-2.0-2.0); BG CARBOXYHEMOGLOBIN 0.3 % (0.5-1.5); BG DEOXYHEMOGLOBIN 3.4 % (0.0-5.0); BG FRACTION INSPIRED OXYGEN 70; BG HCO3 ACT 22.8 mmol/L (22.0-26.0); BG METHEMOGLOBIN 0.9 % (0.0-1.5); BG OXYGEN SATURATION 96.6 % (92.0-98.5); BG OXYHEMOGLOBIN 95.4 % (94.0-97.0); BG PCO2 48.7 mmHg (35.0-45.0); BG PH 7.288 (7.350-7.450); BG PO2 94.7 mmHg (75.0-100.0); BG SAMPLE SITE RIGHT RADIAL; BG TOTAL HEMOGLOBIN 21.7 g/dL (12.0-18.0); BG TOTAL RESPIRATORY RATE 24 b/min; BG VENT MODE VENT - AC
[2020-03-22] MEDS ORDERED: VANCOMYCIN 1500MG in DEXTROSE 5% WATER 250ML IV SCH (18:00)
[2020-03-22 20:18] LABS: PLATELET ESTIMATE NORMAL
== END 2020-03-22 14:59 | disposition expired | DRG 870 ==
LOC: ER 14:46 → MICUSO 19:46 → EDBEDREQTM 03-12 03:09 → EDBEDREQSVC 03-12 03:09 → EDBEDREQDT 03-12 03:09 → 5EST 03-15 02:59
PROVIDERS: ADMIT Internal Medicine; ATTEND Internal Medicine
PROC: 5A1955Z Respiratory Ventilation, Greater than 96 Consecutive Hours (ICD-10-PCS; principal; 2020-03-11)
PROC: 5A09357 Assistance with Respiratory Ventilation, Less than 24 Consecutive Hours, Continuous Positive Airway Pressure (ICD-10-PCS; 2020-03-11)
PROC: 0BH18EZ Insertion of Endotracheal Airway into Trachea, Via Natural or Artificial Opening Endoscopic (ICD-10-PCS; 2020-03-12)
PROC: 02HV33Z Insertion of Infusion Device into Superior Vena Cava, Percutaneous Approach (ICD-10-PCS; 2020-03-19)
PROC: B54MZZA Ultrasonography of Right Upper Extremity Veins, Guidance (ICD-10-PCS; 2020-03-19)
PROC: 02HV33Z Insertion of Infusion Device into Superior Vena Cava, Percutaneous Approach (ICD-10-PCS; 2020-03-19)
PROC: B548ZZA Ultrasonography of Superior Vena Cava, Guidance (ICD-10-PCS; 2020-03-19)
PROC: 5A12012 Performance of Cardiac Output, Single, Manual (ICD-10-PCS; 2020-03-22)
DX: A41.9 Sepsis, unspecified organism (principal); J96.01 Acute respiratory failure with hypoxia; J18.9 Pneumonia, unspecified organism; I50.33 Acute on chronic diastolic (congestive) heart failure; J96.02 Acute respiratory failure with hypercapnia; R65.21 Severe sepsis with septic shock; E66.2 Morbid (severe) obesity with alveolar hypoventilation; S27.329A Contusion of lung, unspecified, initial encounter; E87.2 Acidosis; G93.40 Encephalopathy, unspecified; Z68.41 Body mass index [BMI] 40.0-44.9, adult; N17.9 Acute kidney failure, unspecified; K80.20 Calculus of gallbladder without cholecystitis without obstruction; D69.6 Thrombocytopenia, unspecified; I27.29 Other secondary pulmonary hypertension; I27.81 Cor pulmonale (chronic); Z20.828 Contact with and (suspected) exposure to other viral communicable diseases; G40.909 Epilepsy, unspecified, not intractable, without status epilepticus; I46.9 Cardiac arrest, cause unspecified; Z79.899 Other long term (current) drug therapy
CPT/HCPCS: 31500; 36415; 36600; 71045; 71275; 76700; 76937; 80048; 80053; 80076; 80202; 81003; 82375; 82550; 82728; 82805; 82962; 83605; 83880; 84145; 84439; 84484; 85025; 85379; 85384; 87070; 87449; 87635; 87804; 93005; 93306; 93880; 93970; 94002; 94003; 94640; 94660; 99291; C1725; C9113; C9803; J0456; J0696; J1100; J1650; J1940; J2060; J2185; J2250; J2370; J2543; J2704; J2920; J3010; J3370; J3490; J7050; J7060; J7608; Q9967; U0003; A4315